=== PATIENT | female | born 1955 | race Caucasian/White ===

== ENCOUNTER → 2016-12-03 | Outpatient (REF) | LOC: ZLAB.WCH 18:59 | DX: Z01.89 Encounter for other specified special examinations (principal) ==

== ENCOUNTER → 2017-03-13 | Outpatient (REF) | LOC: ZLAB.WCH 18:16 | DX: Z01.89 Encounter for other specified special examinations (principal) ==

== ENCOUNTER → 2018-06-02 | Outpatient (REF) ==
[2018-06-02 17:09] LABS: THYROID STIMULATING HORMONE 1.56 uIU/mL (0.465-4.680)
== END ==
LOC: ZLAB.WCH 16:03
PROVIDERS: Internal Medicine
DX: Z01.89 Encounter for other specified special examinations (principal)

== ENCOUNTER → 2018-12-29 | Outpatient (REF) | LOC: COL.CARD 11:09 | DX: Z01.818 Encounter for other preprocedural examination (principal) ==

== ENCOUNTER 2019-11-25 17:59 | Observation (INO) | payer BC ==
[~2019-11-25] VITALS: Ht 152.4 cm; Wt 67.3 kg
[2019-11-25 18:19] LABS: BASO # 0.1 (0.0-0.2); BASO % 0.8 % (0.0-2.0); EOS # 0.1 (0.0-0.7); EOS % 1.1 % (0-4.0); GRAN # 4.7 (1.4-6.5); GRAN % 56.5 % (42.2-75.2); HEMATOCRIT 43.9 % (37.0-47.0); HEMOGLOBIN 14.8 g/dl (12.5-16.0); LYMPH # 2.6 (1.2-3.4); LYMPH % 31.2 % (20.0-51.0); MEAN CELL VOLUME 95 fl (80.0-100.0); MEAN CORPUSCULAR HEMOGLOBIN 32 pg (27.0-31.0); MEAN CORPUSCULAR HGB CONC 34 g/dl (33.0-37.0); MEAN PLATELET VOLUME 9.9 fl (7.4-10.4); MONO # 0.8 (0.1-0.6); PLATELET COUNT 237 K/mm3 (130-400); RED BLOOD COUNT 4.64 M/mm3 (4.10-5.30); REDCELL DISTRIBUTION WIDTH-CV 12.7 % (11.5-14.5)
[2019-11-25 18:25] LABS: PROTHROMBIN TIME 10.7 SECONDS (9.7-12.8)
[2019-11-25 18:27] LABS: PARTIAL THROMBOPLASTIN TIME 34.3 SECONDS (26.0-37.0)
[2019-11-25 18:28] LABS: ALANINE AMINOTRANSFERASE 54 U/L (4-34); ALBUMIN 4.6 gm/dL (3.5-5.0); ALKALINE PHOSPHATASE 78 U/L (50-136); ANION GAP 10 mmol/L (7-16); AST,SGOT 45 U/L (15-37); BILIRUBIN,TOTAL 0.6 mg/dL (0.0-1.0); BLOOD UREA NITROGEN 14 mg/dL (7-17); CALCIUM 9.7 mg/dL (8.4-10.2); CARBON DIOXIDE 23 mmol/L (22-30); CHLORIDE 102 mmol/L (98-107); CREATININE, serum 0.97 (0.52-1.25); GLUCOSE 99 mg/dL (74-106); POTASSIUM 4.1 mmol/L (3.4-5.0); SODIUM 136 mmol/L (137-145); TOTAL PROTEIN 7.9 gm/dL (6.4-8.2)
[2019-11-25 18:42] LABS: TROPONIN-I < 0.012 ng/mL (0.000-0.035)
[2019-11-25] MEDS ORDERED: TOPROL XL 25MG25 MG PO (18:44)
[2019-11-25] MEDS ORDERED: LIPITOR 80MG80 MG PO (18:44)
[2019-11-25] MEDS ORDERED: CYANOCOBAL1000 MCG/M PO (18:45)
[2019-11-25] MEDS ORDERED: LEVOXYL0.075 MG PO (18:45)
[2019-11-25] MEDS ORDERED: ZETIA 10MG TAB10 MG PO (18:45)
[2019-11-25] MEDS ORDERED: CELEXA40 MG PO (18:45)
[2019-11-25 18:58] LABS: COLLECTION METHOD CLEAN CATCH
[2019-11-25 19:22] LABS: MUCOUS Present /lpf; PH 5 (5-8); SQUAMOUS EPITHELIAL 0-2 /hpf; URINE APPEARANCE Clear; URINE BACTERIA None Seen /hpf; URINE BILIRUBIN Negative (NEGATIVE); URINE BLOOD Negative (NEGATIVE); URINE COLOR Yellow; URINE GLUCOSE Negative (NEGATIVE); URINE KETONE Negative (NEGATIVE); URINE LEUKOCYTE ESTERASE Negative (NEGATIVE); URINE NITRATE Negative (NEGATIVE); URINE PROTEIN(semi-quant) Negative (NEGATIVE); URINE RBC 0-2 /hpf; URINE UROBILINOGEN Negative (NEGATIVE)
--- NOTE | 2019-11-25 21:30 | NUR ---
Patient to medical room 354 at this time via wheelchair. Initial assessment, Admission B, and Med Rec completed at this time. Patient is alert and oriented with no aphasia. Her gait is steady with no assistive devices. Heart sounds are normal/regular and lungs are clear. No edema or pain is present.
[2019-11-25 21:31] VITALS: BP 136/69; PULSE 62; TEMP 97.6
[2019-11-25 21:59] VITALS: BP 136/69; PULSE 62; TEMP 97.6
[2019-11-26 00:59] VITALS: BP 120/54; PULSE 68; TEMP 97.8
[2019-11-26 04:06] VITALS: BP 122/66; PULSE 63; TEMP 98.1
--- NOTE | 2019-11-26 04:52 | NUR ---
Patient has had an uneventful, restful night. Neuro checks have remained stable. No new concerns.
[2019-11-26 07:41] LABS: BASO # 0.1 (0.0-0.2); BASO % 0.9 % (0.0-2.0); EOS # 0.1 (0.0-0.7); EOS % 1.2 % (0-4.0); GRAN # 4.5 (1.4-6.5); HEMATOCRIT 42.8 % (37.0-47.0); HEMOGLOBIN 14.3 g/dl (12.5-16.0); LYMPH # 1.7 (1.2-3.4); LYMPH % 24.3 % (20.0-51.0); MEAN CELL VOLUME 95 fl (80.0-100.0); MEAN CORPUSCULAR HEMOGLOBIN 32 pg (27.0-31.0); MEAN CORPUSCULAR HGB CONC 33 g/dl (33.0-37.0); MONO # 0.6 (0.1-0.6); MONO % 8.2 % (1.7-9.3); PLATELET COUNT 209 K/mm3 (130-400); RED BLOOD COUNT 4.49 M/mm3 (4.10-5.30); REDCELL DISTRIBUTION WIDTH-CV 12.7 % (11.5-14.5)
--- NOTE | 2019-11-26 07:50 | NUR ---
PT IN BED UPON ENTRY, DENIES PAIN OR DISCOMFORT, [employer]IZ[employer] PSYCHOLOGIST EQUAL, PT PLEASANT, TELE REMOVED FOR MRI. NO OTHER NEEDS AT THIS TIME.
[2019-11-26 07:51] LABS: CALCIUM 9.1 mg/dL (8.4-10.2); CHOLESTEROL RISK RATIO 5.1; CREATININE, serum 0.91 (0.52-1.25); POTASSIUM 4.2 mmol/L (3.4-5.0)
[2019-11-26 08:35] VITALS: BP 103/57; PULSE 60; TEMP 98.6
[2019-11-26] MEDS ORDERED: ASPIRIN E.C. 8181 MG PO (10:29)
[2019-11-26 11:56] VITALS: BP 136/64; PULSE 71; TEMP 98.3
--- NOTE | 2019-11-26 13:30 | NUR ---
PT DISCHARGE EDUCATION PROVIDED, PT IV DC'D, PT TELEMETRY REMOVED. PT ESCORTED OUT, REFUSED WHEELCHAIR, PT TOOK PERSONAL BELONGINGS, NO OTHER NEEDS AT THIS TIME.
== END 2019-11-26 13:30 | disposition home or self-care (01) ==
LOC: COL.ER 17:59 → MEDICAL 20:39
PROVIDERS: Emergency Medicine; ADMIT Student in an Organized Health Care Education/Training Program
DX: R20.9 Unspecified disturbances of skin sensation (principal); I10 Essential (primary) hypertension; F41.9 Anxiety disorder, unspecified; E03.9 Hypothyroidism, unspecified; E78.1 Pure hyperglyceridemia; I37.1 Nonrheumatic pulmonary valve insufficiency; Z82.3 Family history of stroke
CPT/HCPCS: G0378; J1650; Q9967

== ENCOUNTER → 2019-12-01 | Outpatient (CLI) | payer BC ==
[~2019-12-01] MED LIST: ASPIRIN E.C. 8181 MG PO; CELEXA40 MG PO; CYANOCOBAL1000 MCG/M PO; LEVOXYL0.075 MG PO; LIPITOR 80MG80 MG PO; TOPROL XL 25MG25 MG PO; ZETIA 10MG TAB10 MG PO
== END ==
LOC: COL.CARD 07:36
DX: G45.9 Transient cerebral ischemic attack, unspecified (principal)

== ENCOUNTER → 2020-11-30 | Outpatient (REF) | LOC: COL.CARD 14:19 | DX: Z01.810 Encounter for preprocedural cardiovascular examination (principal) ==